=== PATIENT | female | born 1990 | race Caucasian/White ===

== ENCOUNTER 2018-01-06 19:50 | Emergency (ER) | payer OTHER ==
[~2018-01-06] VITALS: Ht 177.8 cm; Wt 67.0 kg
[2018-01-06] MEDS ORDERED: ACETAMINOPHEN 325MG TABLET PO ONE (22:45)
[2018-01-07 00:25] VITALS: BP 110/75
== END 2018-01-07 00:25 | disposition home or self-care (01) ==
LOC: ER 19:50
DX: M25.562 Pain in left knee (principal); M25.462 Effusion, left knee; Z98.890 Other specified postprocedural states
CPT/HCPCS: 81025; 93971; 99284